=== PATIENT | female | born 1995 | race Caucasian/White ===

== ENCOUNTER 2018-03-20 06:12 | Day surgery (SDC) | payer OTHER ==
--- NOTE | 2018-03-15 12:09 | HP ---
HISTORY OF PRESENT ILLNESS: Adilene Guy is a 23-year-old from [place], senior at [employer] in [employer], has had several year history of intermittent bloody drainage perianal. This is on the toilet tissue and in the toilet bowl. She has minor discomfort, but not discomfort suggestive of an anal fissure. She has anal mass that has grown in size and bothersome to her. It is slightly painful. On exam, she was noted to have a slight skin tear on the posterior anal area; and on the anterior anal area, a perianal mass, not consistent with condyloma. Plan is to excise this mass, exam under anesthesia and excise any smaller hemorrhoidal complex as indicated. She understands risks and benefits of procedure and consents. ALLERGIES: NONE. SOCIAL HISTORY: Tobacco, none. Alcohol socially. PAST SURGICAL HISTORY: Noncontributory. REVIEW OF SYSTEMS: Noncontributory. PAST MEDICAL HISTORY: Noncontributory. PHYSICAL EXAMINATION: VITAL SIGNS: Weight 145 pounds, height 5 feet and 6 inches. Blood pressure 132/81, pulse 90, temperature 98.4 degrees. HEAD, EARS, EYES, NOSE, AND THROAT: Unremarkable. LUNGS: Clear to auscultation. CARDIAC: Regular rate and rhythm without murmur or gallop. ABDOMEN: Soft and nontender. EXTREMITIES: Unremarkable. Perianal area reveals an anterior large mass approximately 3 x 2 cm. She has posteriorly a small tear with bleeding beneath this hemorrhoid. ASSESSMENT: Perianal external hemorrhoid and perianal mass. PLAN: Exam under anesthesia and excision of the small hemorrhoid complex closure and excision of the mass and submitted to pathology. We will plan a lower anoscopy during the procedure. She understands risks, benefits, and consents. Job ID: [id number]
[2018-03-17 10:27] VITALS: BMI 22.6
[2018-03-20] MEDS ORDERED: Meropenem 2 GM in Sodium Chloride 0.9% 100 ML IVPB SCH (06:30)
[2018-03-20] MEDS ORDERED: Ketorolac Tromethamine 30 MG/ML VIAL ONE (06:31)
[2018-03-20 06:44] LABS: #Eosinphils 0.2 thou/uL (0.0-0.7); #Lymphocytes 2.2 thou/uL (1.20-3.40); #Monocytes 0.4 thou/uL (0.11-0.59); #Neutrophils 1.9 thou/uL (1.40-6.50); %Eosinophils 4.2 % (0.0-10.0); %Lymphocytes 45.7 % (21.0-51.0); %Monocytes 9.2 % (0.0-10.0); Hemoglobin 13.8 g/dL (12.0-16.0); Mean Corpuscular HGB CONC 32.9 g/dL (32.0-36.0); Mean Corpuscular Hemoglobin 31.2 pg (27.0-31.0); Mean Corpuscular Volume 94.8 fL (78.0-98.0); Mean Platelet Volume 8.2 fL (7.4-10.4); Platelet Count 225 thou/uL (130-400); RBC Distribution Width 10.6 % (11.5-14.5); Red Blood Cell (RBC) Count 4.44 mill/uL (4.20-5.40); White Blood Cell (WBC) Count 4.7 thou/uL (4.8-10.8)
[2018-03-20] MEDS ORDERED: Lidocaine 2% PF 5 ML VIAL ONE (06:49)
[2018-03-20] MEDS ORDERED: Bupivacaine HCl 0.5%/Epinephrine 1:200,000/PF 30 ml Vial ONE (06:49)
[2018-03-20] MEDS ORDERED: Lidocaine 2% Jelly 5 ML TUBE ONE (06:49)
[2018-03-20 06:52] LABS: BHCG - Serum Negative (NEGATIVE); Pregs Control Background? CLEAR/WHITE (CLR/WHITE); Pregs Control Bar Appear? YES (CONTROL BAR)
[2018-03-20 06:57] LABS: Anion Gap 10 mmol/L (10-20); BUN (Urea Nitrogen) 11 mg/dL (7.0-18.7); Calc. Creatinine Clearance 121 mL/min (70-130); Calcium 9.3 mg/dL (7.8-10.44); Carbon Dioxide 24 mmol/L (22-29); Chloride 109 mmol/L (98-107); Estimated GFR-MDRD Greater than 90; Glucose 95 mg/dL (70-105); Potassium 3.8 mmol/L (3.5-5.1); Sodium 139 mmol/L (136-145)
[2018-03-20] MEDS ORDERED: Midazolam HCl 2 mg/2 ml Vial ONE ×2 (07:16→07:19)
[2018-03-20] MEDS ORDERED: Fentanyl 100 MCG/2 ML VIAL ONE (07:19)
[2018-03-20] MEDS ORDERED: Meperidine HCl/PF 25 MG/ML VIAL ONE (08:27)
--- NOTE | 2018-03-20 09:47 | OP ---
DATE OF PROCEDURE: 03/20/2018 PREOPERATIVE DIAGNOSES: Perianal pain, large internal and external hemorrhoids prolapsing. POSTOPERATIVE DIAGNOSES: Perianal pain, large internal and external hemorrhoids prolapsing. PROCEDURE PERFORMED: Exam under anesthesia, absence of fissure, excision of single internal and external hemorrhoidal complex. ANESTHESIA: General, local 0.5% Marcaine with epinephrine, 30 mL mixed with 2% Xylocaine, 10 mL mixture use. ESTIMATED BLOOD LOSS: Less than 5 mL. DESCRIPTION OF PROCEDURE: The patient was taken to the operating room, where under general anesthesia in the dorsal lithotomy position, perianal area and buttocks prepared with Betadine and draped in routine fashion. Exam under anesthesia revealed absence of an anal fissure. There were small internal hemorrhoids, noteworthy of excision except anterior, where there was a larger internal and external hemorrhoidal complex prolapsing. This apical suture of 3-0 chromic was placed in the rectum and excision of the external hemorrhoidal complex elliptical made and LigaSure used to excise the internal hemorrhoid and defect closed with continuous locking suture of 3-0 chromic. Local anesthetic was infiltrated in the skin and subcutaneous tissue. The patient tolerated the procedure well. Job ID: [id number]
[2018-03-20] MEDS ORDERED: Ondansetron PF 4 MG/2 ML Vial ONE (16:36)
[2018-03-20] MEDS ORDERED: Lidocaine 1% PF 5 ML VIAL ONE (16:36)
[2018-03-20] MEDS ORDERED: Dexamethasone 20 MG/5 ML VIAL ONE (16:36)
[2018-03-20] MEDS ORDERED: PROPOFOL 200 MG/20 ML VIAL ONE (16:36)
== END 2018-03-20 09:29 | disposition home or self-care (01) ==
LOC: SDC 06:12
PROVIDERS: ATTEND Specialist
PROC: 06BY3ZC Excision of Hemorrhoidal Plexus, Percutaneous Approach (ICD-10-PCS; principal; 2018-03-20)
DX: K64.8 Other hemorrhoids (principal); K64.4 Residual hemorrhoidal skin tags
CPT/HCPCS: 36415; 80048; 84703; 85025; 88304; J0131; J0670; J1100; J1885; J2001; J2175; J2185; J2250; J2405; J2704; J3010; J7050